=== PATIENT | female | born 1990 | race Caucasian/White ===

== ENCOUNTER 2023-05-25 10:18 | Inpatient (IN) | payer BC ==
[2023-05-25 11:08] VITALS: BMI 28.5
[2023-05-25 12:24] LABS: Fetal Membranes Rupture RUPTURE DETECTED (No Rupture)
[2023-05-25] MEDS ORDERED: Lactated Ringer's 1,000 ML IV SCH (13:15)
[2023-05-25] MEDS ORDERED: Promethazine HCl 25 MG/ML VIAL IM PRN ×2 (13:15→22:11)
[2023-05-25] MEDS ORDERED: Acetaminophen 500 MG TAB PO PRN (13:15)
[2023-05-25] MEDS ORDERED: Ondansetron PF 4 MG/2 ML Vial IVP PRN ×2 (13:15→22:11)
[2023-05-25] MEDS ORDERED: hydrALAZINE 20 MG/ML VIAL SLOW IVP PRN (13:15)
[2023-05-25] MEDS ORDERED: fentaNYL 50 mcg/mL 1 mL Vial SLOW IVP PRN (13:17)
[2023-05-25] MEDS ORDERED: Lidocaine 1% (PF) 30 ML VIAL SC PRN (13:30)
[2023-05-25] MEDS ORDERED: Misoprostol 200 MCG TAB RC PRN (13:30)
[2023-05-25] MEDS ORDERED: Oxytocin 30 units/NS 500 ML 500 ML IV SCH (13:30)
[2023-05-25] MEDS ORDERED: Carboprost 250 MCG/ML AMP IM PRN (13:30)
[2023-05-25] MEDS ORDERED: Methylergonovine 0.2 MG/ML VIAL IM PRN (13:30)
[2023-05-25] MEDS ORDERED: Oxytocin 30 units/NS 500 ML 500 ML IVPB SCH (13:30)
[2023-05-25] MEDS: Misoprostol 100 MCG TAB PO SCH ×2 (13:31→16:57)
[2023-05-25 13:37] LABS: Hematocrit 36.8 % (34.9-44.5); Hemoglobin 12.1 g/dL (12.0-15.5); Mean Corpuscular HGB CONC 32.9 g/dL (32.0-36.0); Mean Corpuscular Hemoglobin 30.2 pg (27.0-33.0); Mean Corpuscular Volume 91.8 fl (81.6-98.3); Mean Platelet Volume 12.4 fl (7.4-10.4); Platelet Count 169 10x3/uL (150-450); RBC Distribution Width 13.8 % (11.5-14.5); Red Blood Cell (RBC) Count 4.01 10x6/uL (3.90-5.03); White Blood Cell (WBC) Count 8.6 10x3/uL (3.5-10.5)
[2023-05-25 14:00] LABS: HIV (1/2) Antibody/Antigen Non-Reactive (NonReactive)
[2023-05-25 14:02] LABS: HBSAg Index 0.19 S/CO (0-0.99); Hep B Surf Ag - L&D Non-Reactive S/CO (NonReactive); Syphilis Antibody Nonreactive (Nonreactive); Syphilis Antibody Index 0.04 S/CO (<1.00 Non-Reactive)
[2023-05-25] MEDS ORDERED: hydrOXYzine 25 MG TAB PO PRN (19:34)
[2023-05-25] MEDS ORDERED: fentaNYL/Ropivacaine Epidural 100 ML ONE (21:26)
[2023-05-25] MEDS ORDERED: Lactated Ringer's 500 ML IV PRN (22:11)
[2023-05-25] MEDS ORDERED: Moisturizing Cream (Eucerin) 113 GM JAR TOP PRN (22:11)
[2023-05-25] MEDS ORDERED: ePHEDrine Sulfate 50 MG/10 ML VIAL SLOW IVP PRN (22:11)
[2023-05-25] MEDS ORDERED: Naloxone HCl 0.4 mg/ml Vial IVP PRN ×2 (22:11)
[2023-05-25] MEDS ORDERED: diphenhydrAMINE 50 MG/ML VIAL IVP PRN (22:11)
[2023-05-25] MEDS ORDERED: Acetaminophen 325 MG TAB PO PRN (22:11)
[2023-05-25] MEDS ORDERED: Communication Order-Pharmacy FS SCH (22:15)
[2023-05-25] MEDS ORDERED: fentaNYL 2 mcg/Ropivacaine 0.2% Epidural 100 ML CADD EPIDURAL SCH (22:15)
[2023-05-26] MEDS ORDERED: Famotidine/PF 20 mg/2ml Vial SLOW IVP SCH (08:00)
[2023-05-26] MEDS ORDERED: Piperacillin/Tazobactam 3.375 GM in Sodium Chloride 0.9% 100 ML IVPB SCH ×3 (08:15→12:30)
[2023-05-26 09:00] LABS: #Monocytes 1.2 10x3/uL (0.0-1.1); #Neutrophils 15.2 10x3/uL (1.5-8.4); %Basophils 0.2 % (0.0-2.0); %Eosinophils 0.1 % (0.0-6.0); %Lymphocytes 5.8 % (18.0-47.0); %Monocytes 6.7 % (0.0-10.0); %Neutrophils 86.6 % (40.0-75.0); Mean Corpuscular HGB CONC 33.3 g/dL (32.0-36.0); Mean Corpuscular Hemoglobin 29.6 pg (27.0-33.0); Mean Corpuscular Volume 88.7 fl (81.6-98.3); Platelet Count 157 10x3/uL (150-450); RBC Distribution Width 13.8 % (11.5-14.5); Red Blood Cell (RBC) Count 3.72 10x6/uL (3.90-5.03); White Blood Cell (WBC) Count 17.5 10x3/uL (3.5-10.5)
[2023-05-26] MEDS ORDERED: Gentamicin Sulfate 290 MG in Sodium Chloride 0.9% 100 ML IVPB SCH (09:00)
[2023-05-26 11:07] LABS: INR-International Normal Ratio 0.9; PTT 25.7 sec (22.0-33.0); Prothrombin Time 9.9 sec (9.5-12.1)
[2023-05-26 11:18] LABS: ALT (SGPT) 12 U/L (8-55); AST (SGOT) 19 U/L (5-34); Albumin 2.8 g/dL (3.5-5.0); Alkaline Phosphatase 183 U/L (40-110); Anion Gap 16 mmol/L (10-20); BUN (Urea Nitrogen) 13 mg/dL (7.0-18.7); Bilirubin, Total 0.4 mg/dL (0.2-1.2); Calc. Creatinine Clearance 96 mL/min (70-130); Calcium 8.2 mg/dL (7.8-10.44); Carbon Dioxide 15 mmol/L (22-29); Chloride 109 mmol/L (98-107); Estimated GFR 82; Globulin 2.6 g/dL (2.4-3.5); Glucose 114 mg/dL (70-105); Potassium 3.9 mmol/L (3.5-5.1); Protein, Total 5.4 g/dL (6.0-8.3); Sodium 136 mmol/L (136-145)
[2023-05-26] MEDS ORDERED: diphenhydrAMINE 25 MG CAP PO PRN (12:13)
[2023-05-26] MEDS ORDERED: Bisacodyl 10 MG SUPP PR PRN (12:13)
[2023-05-26] MEDS ORDERED: hydrALAZINE 20 MG/ML VIAL SLOW IVP PRN (12:13)
[2023-05-26] MEDS ORDERED: Promethazine HCl 25 MG/ML VIAL IM PRN (12:13)
[2023-05-26] MEDS ORDERED: Ondansetron PF 4 MG/2 ML Vial IVP PRN (12:13)
[2023-05-26] MEDS ORDERED: Preparation H Ointment 28 GM TUBE PR PRN (12:13)
[2023-05-26] MEDS ORDERED: Lanolin Ointment 7 GM TUBE TOP PRN (12:13)
[2023-05-26] MEDS ORDERED: Milk Of Magnesia 30 ML UDCUP PO PRN (12:13)
[2023-05-26] MEDS ORDERED: Boostrix 0.5 ML (Tdap) VIAL (>/=7 yrs of age) IM ONE (12:13)
[2023-05-26] MEDS ORDERED: HYDROcodone/Acetaminophen 5/325 mg Tablet PO PRN ×2 (12:13)
[2023-05-26] MEDS ORDERED: Benzocaine-Menthol 82.5 ML CAN TOP PRN (12:13)
[2023-05-26] MEDS: Ibuprofen 800 MG TAB PO SCH ×2 (15:05→21:21)
[2023-05-26] MEDS ORDERED: Bupivacaine 0.25% HCL 30 ML VIAL ONE (16:01)
[2023-05-26] MEDS: Misoprostol 100 MCG TAB PO SCH (19:10)
[2023-05-26] MEDS: Docusate 100 MG CAP PO SCH (20:08)
[2023-05-26] MEDS: Ferrous Sulfate 325 MG TAB PO SCH (21:21)
[2023-05-27] MEDS: Ibuprofen 800 MG TAB PO SCH ×3 (05:37→21:10)
[2023-05-27] MEDS: Ferrous Sulfate 325 MG TAB PO SCH ×2 (07:44→18:58)
[2023-05-27] MEDS: Docusate 100 MG CAP PO SCH ×2 (08:35→21:10)
[2023-05-27] MEDS: Prenatal Vitamin 1 TAB PO SCH (08:35)
[2023-05-27 20:05] VITALS: TEMP 98.1
[2023-05-28] MEDS: Ibuprofen 800 MG TAB PO SCH (06:02)
[2023-05-28 08:13] VITALS: BP 116/55
[2023-05-28] MEDS: Docusate 100 MG CAP PO SCH (08:14)
[2023-05-28] MEDS: Prenatal Vitamin 1 TAB PO SCH (08:14)
[2023-05-28] MEDS: Ferrous Sulfate 325 MG TAB PO SCH (08:14)
== END 2023-05-28 11:30 | disposition home or self-care (01) | DRG 807 ==
LOC: CSHLD/OP 10:18 → CSHLD 13:11 → CSHPP 05-26 14:10
PROVIDERS: ADMIT Student in an Organized Health Care Education/Training Program; ATTEND Student in an Organized Health Care Education/Training Program
PROC: 10E0XZZ Delivery of Products of Conception, External Approach (ICD-10-PCS; principal; 2023-05-26)
PROC: 0HQ9XZZ Repair Perineum Skin, External Approach (ICD-10-PCS; 2023-05-26)
DX: O42.02 Full-term premature rupture of membranes, onset of labor within 24 hours of rupture (principal); Z37.0 Single live birth; Z3A.40 40 weeks gestation of pregnancy; Z88.8 Allergy status to other drugs, medicaments and biological substances; O69.81X0 Labor and delivery complicated by cord around neck, without compression, not applicable or unspecified; O70.0 First degree perineal laceration during delivery
CPT/HCPCS: 36415; 51701; 51702; 80053; 83605; 84112; 85025; 85027; 85610; 85730; 86780; 86850; 86900; 86901; 87040; 87340; 87389; 99285; J0665; J2543; J2590; J3490; S0028